=== PATIENT | male | born 1975 | race African-American/Black ===

== ENCOUNTER 2022-06-14 13:07 | Emergency (ER) | payer OTHER ==
[2022-06-14 13:24] VITALS: BP 130/82; PULSE 72; RESP 18; TEMP 98; BMI 26.6
[2022-06-14] MEDS ORDERED: ACETAMINOPHEN 1000 MG/100 ML BAG IVPB ONE (17:07)
[2022-06-14] MEDS ORDERED: SODIUM CHLORIDE 1,000 ML IV STA (17:07)
[2022-06-14] MEDS ORDERED: ACETAMINOPHEN INJECTION 100 ML IVPB ONE (17:17)
[2022-06-14] MEDS ORDERED: ACETAMINOPHEN 500 MG TABLET (FP) PO ONE (17:18)
[2022-06-14] MEDS ORDERED: ACETAMINOPHEN 500 MG TABLET (FP) ONE (17:24)
== END 2022-06-14 17:44 | disposition left against medical advice (07) ==
LOC: JER 13:07
DX: R10.9 Unspecified abdominal pain (principal)
CPT/HCPCS: 36415; 82272; 99283-25